=== PATIENT | female | born 1945 | race Caucasian/White ===

== ENCOUNTER → 2018-03-04 | Outpatient (CLI) | payer MEDICARE, OTHER ==
[~2018-03-04] MED LIST: ASA81 MG; CALCIUM PO; COQ-10; FISH OIL 1,2001 EAC5; HYDROCODONE AP; METRONIDAZOLE; VITAMIN D PO; Z OSTEO BI FLEX; Z.0.ALEVE220 MG; Z.0.BACLOFEN20 MG; Z.0.BYSTOLIC10 MG; Z.0.CYCLOBENZAPRINE1 PO; Z.0.DIOVAN320 MG; Z.0.EVISTA60 MG; Z.0.FUROSEMIDE20 MG; Z.0.SYNTHROID75 MCG; Z.0.ULTRAM 50MG50 MG PO; Z.0.VYTORIN 10-801 E
--- NOTE | 2018-03-04 18:46 | Diagnostic Imaging Report ---
PROCEDURE:X-RAY LEFT FINGER COMPARISON:None. INDICATIONS:LEFT FIFTH DIGIT PAIN/SWELLING FINDINGS: BONES:Generalized osteopenia, which limits evaluation of the bony structures. No acute displaced fracture or dislocation. Marked joint space narrowing and osteophytosis of the fourth finger distal interphalangeal joint and to a lesser degree proximal interphalangeal joint. Moderate joint space narrowing is noted in the fifth finger distal interphalangeal joint with mild joint space narrowing in the proximal interphalangeal joint. No lytic or blastic lesions. SOFT TISSUES:Mild soft tissue swelling in the fifth finger. No cystic erosive changes. OTHER:Negative. CONCLUSION: 1. Findings likely represent moderate to marked osteoarthritis. Nato Ahmadi M.D. Dictated by: Nato Ahmadi M.D. on 03/04/2018 at 18:50 Electronically approved by: Nato Ahmadi M.D. on 03/04/2018 at 18:50
== END ==
LOC: RAD 16:58
PROVIDERS: ATTEND Family Medicine
DX: M79.645 Pain in left finger(s) (principal)

== ENCOUNTER → 2018-07-09 | Outpatient (CLI) | payer MEDICARE, OTHER ==
--- NOTE | 2018-07-09 18:46 | Diagnostic Imaging Report ---
EXAM: HEEL RT INDICATION: Heel pain COMPARISON: None FINDINGS: BONES: No acute fractures. Moderate posterior calcaneal spur. Tiny plantar calcaneal spur. Coarse calcifications at the posterior superior calcaneus. JOINTS: No malalignment. SOFT TISSUES: Soft tissue prominence of the posterior ankle. IMPRESSION: Moderate sized posterior calcaneal spur. Tiny plantar calcaneal spur. Coarse calcifications posterior superior calcaneus and soft tissue prominence of the posterior ankle suggests prior Achilles tendon injury. Signed by: Dr. Jayne Smith M.D. on 07/09/2018 6:43 PM
== END ==
LOC: RAD 16:42
PROVIDERS: ATTEND Family Medicine
DX: M79.671 Pain in right foot (principal)

== ENCOUNTER → 2019-02-15 | Outpatient (CLI) | payer MEDICARE, OTHER ==
--- NOTE | 2019-02-15 14:39 | Diagnostic Imaging Report ---
Exam: Abdominal film Clinical History: Renal stones Comparison: 05/18/2017 DISCUSSION: No suspicious calcifications project over the renal shadows or expected ureteral courses. Bowel gas pattern is nonobstructive. Regional skeletal structures are intact with multilevel degenerative disc changes of the thoracolumbar spine. IMPRESSION: No plain film evidence of urolithiasis. Signed by: Dr. Levy Aguilera M.D. on 02/15/2019 2:35 PM
--- NOTE | 2019-02-15 14:42 | Diagnostic Imaging Report ---
EXAMINATION: Renal ultrasound. CLINICAL HISTORY :Urinary tract infection COMPARISON: <None available.> TECHNIQUE: Grayscale and color Doppler evaluation of the kidneys and bladder was performed in transverse and longitudinal planes. DISCUSSION: RIGHT KIDNEY: The right kidney measures 11.6 cm in length and shows normal echogenicity. No hydronephrosis, shadowing calculi or solid mass lesions. LEFT KIDNEY: The left kidney measures 11.5 cm in length and shows normal echogenicity. Suspected 3 mm shadowing calculus in the upper pole. No hydronephrosis or mass lesion. BLADDER: Unremarkable. Right and left ureteral jets are identified. IMPRESSION: Suspected 3 mm nonobstructing left renal calculus. Signed by: Dr. Levy Aguilera M.D. on 02/15/2019 2:38 PM
== END ==
LOC: US 13:38
PROVIDERS: ATTEND Urology
DX: N20.0 Calculus of kidney (principal); N39.0 Urinary tract infection, site not specified
CPT/HCPCS: 74018; 76770

== ENCOUNTER → 2019-03-04 | Outpatient (CLI) | payer MEDICARE, OTHER ==
--- NOTE | 2019-03-04 11:51 | Diagnostic Imaging Report ---
PROCEDURE: CT ABDOMEN AND PELVIS WITHOUT CONTRAST TECHNIQUE: The abdomen and pelvis were scanned utilizing a multidetector helical scanner from the diaphragm to the lesser trochanter. No oral or intravenous contrast was administered per renal stone protocol. Coronal and sagittal multiplanar reformations were obtained. COMPARISON: 05/18/2017 INDICATIONS: RIGHT FLANK PAIN, URINARY TRACT INFECTIONS FINDINGS: ABSENCE OF INTRAVENOUS CONTRAST DECREASES SENSITIVITY FOR DETECTION OF FOCAL LESIONS AND VASCULAR PATHOLOGY. LOWER THORAX: Scattered fibrotic changes in the lung bases, likely age-related. HEPATOBILIARY: A calcified granuloma in segment 7. Otherwise no focal hepatic lesion. No intrahepatic biliary ductal dilatation. Gallbladder is unremarkable. SPLEEN: No splenomegaly. PANCREAS: No focal masses or ductal dilatation. ADRENALS: No adrenal nodules. KIDNEYS/URETERS: Nonspecific perinephric fat stranding is unchanged. Punctate nonobstructing left lower pole renal calculus (series 3 image 76). Bilateral extrarenal pelves without overt hydronephrosis. No ureteral or bladder calculi. No gross renal mass lesion. PELVIC ORGANS/BLADDER: The urinary bladder is incompletely distended but otherwise unremarkable. The uterus is not identified and has presumably been resected. No adnexal mass. Coarse right pelvic calcification may be ovarian or lymphatic in nature. PERITONEUM / RETROPERITONEUM: No free air or fluid. LYMPH NODES: No pelvic sidewall, retroperitoneal, or mesenteric lymphadenopathy. VESSELS: Limited evaluation without intravenous contrast. The abdominal aorta is non-aneurysmal. Atherosclerotic calcifications throughout. GI TRACT: The large bowel shows no evidence of distention or wall thickening. There are a few descending and sigmoid colon diverticula without adjacent inflammatory change. The remainder of the distal colon is collapsed and poorly evaluated. The appendix is not identified and may have been removed. No right lower quadrant inflammation. No small bowel dilatation to suggest obstruction. 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 Post surgical changes of the anterior abdominal wall. No additional focal soft tissue abnormalities. No osseous destructive lesions. Multilevel degenerative disc disease and facet arthropathy of the lower lumbar spine.. IMPRESSION: No acute intra-abdominal or pelvic CT abnormalities. Nonobstructing left lower pole renal calculus. Atherosclerotic vascular disease. Large bowel diverticulosis without evidence of diverticulitis. Dictated by: Levy Aguilera M.D. on 03/04/2019 at 11:54 Electronically approved by: Levy Aguilera M.D. on 03/04/2019 at 11:54
== END ==
LOC: CT 10:47
PROVIDERS: ATTEND Urology
DX: N20.0 Calculus of kidney (principal)
CPT/HCPCS: 74176

== ENCOUNTER → 2019-04-14 | Outpatient (CLI) | payer MEDICARE, OTHER ==
--- NOTE | 2019-04-14 11:03 | Diagnostic Imaging Report ---
Bilateral shoulders, 2 views each. History: Bilateral shoulder pain. Findings: The soft tissues are normal. Bone mineralization is normal. There is no evidence of fracture or dislocation. There are no lytic or sclerotic lesions. AC joints are within normal limits. There is bilateral glenohumeral joint space narrowing with osteophytosis. IMPRESSION: Bilateral shoulder DJD. Signed by: Rodolfo Joaquin on 04/14/2019 11:00 AM
== END ==
LOC: RAD 09:56
PROVIDERS: ATTEND Family Medicine
DX: M25.512 Pain in left shoulder (principal); M25.511 Pain in right shoulder

== ENCOUNTER → 2019-08-25 | Outpatient (CLI) | payer MEDICARE, OTHER ==
--- NOTE | 2019-08-25 11:25 | Diagnostic Imaging Report ---
EXAM: ABDOMEN-1VIEW (KUB) DATE: 08/25/2019 10:53 AM INDICATION: Calculus of kidney COMPARISON: CT from 03/04/2019 FINDINGS: Bowel gas pattern is nonspecific but appears nonobstructive. Bowel gas overlies and partially obscures the renal shadows. No abnormal calcification or radiographically evident renal stone is identified. There are multilevel degenerative changes of the visualized spine. No acute osseous abnormality is identified. IMPRESSION: No radiographically evident renal stone identified. Signed by: Dr. Floyd Link MD on 08/25/2019 11:22 AM
== END ==
LOC: RAD 10:36
PROVIDERS: ATTEND Urology
DX: N20.0 Calculus of kidney (principal)
CPT/HCPCS: 74018

== ENCOUNTER → 2020-07-31 | Outpatient (CLI) | payer MEDICARE, OTHER ==
--- NOTE | 2020-07-31 14:50 | Diagnostic Imaging Report ---
Exam: KUB - 1 views Indication: Urinary tract infection Comparison: KUB of 08/25/2019, CT abdomen and pelvis of 03/04/2019 Findings: No radiographically apparent urinary calculi. Nonobstructive bowel gas pattern. No free air. No acute osseous injury. Degenerative changes of the visualized spine and both hip joints. Impression: No radiographically apparent urinary calculi. Signed by: Vini Sharma MD on 07/31/2020 2:47 PM
--- NOTE | 2020-07-31 15:31 | Diagnostic Imaging Report ---
EXAM: Renal Ultrasound INDICATION: ^[id number] ^[id number] COMPARISON: KUB of the same day, CT abdomen and pelvis of 03/04/2019 TECHNIQUE: Transverse and longitudinal images of the kidneys and bladder were obtained. FINDINGS: Right Kidney: Length: 10.3 cm Appearance: Normal echogenicity. Collecting system: No hydronephrosis Stones: None Cyst/Mass: None Left Kidney: Length: 10.5 cm Appearance: Normal echogenicity. Collecting system: No hydronephrosis Stones: None Cyst/Mass: None Bladder: No mass or calculi. Right ureteral jet visualized. Prevoid bladder volume estimate of 81 cc. IMPRESSION: No hydronephrosis or renal calculi. Signed by: Vini Sharma MD on 07/31/2020 3:28 PM
== END ==
LOC: US 14:00
PROVIDERS: ATTEND Urology
DX: N39.0 Urinary tract infection, site not specified (principal)
CPT/HCPCS: 74018; 76770

== ENCOUNTER 2021-03-28 14:40 | Outpatient (RCR) | payer MEDICARE, OTHER | END 2021-03-30 | LOC: OT 14:40 | PROVIDERS: ATTEND Specialist | DX: M19.011 Primary osteoarthritis, right shoulder (principal); M19.012 Primary osteoarthritis, left shoulder ==

== ENCOUNTER 2021-06-22 17:29 | Emergency (ER) | payer MEDICARE, OTHER ==
[~2021-06-22] VITALS: Ht 154.9 cm; Wt 86.2 kg
[2021-06-22] MEDS ORDERED: IBUPROFEN 600 MG TAB PO STA (17:48)
== END 2021-06-22 19:09 | disposition home or self-care (01) ==
LOC: ER 17:39
DX: S63.501A Unspecified sprain of right wrist, initial encounter (principal); S43.401A Unspecified sprain of right shoulder joint, initial encounter; W01.0XXA Fall on same level from slipping, tripping and stumbling without subsequent striking against object, initial encounter; Y93.01 Activity, walking, marching and hiking; I10 Essential (primary) hypertension; E11.9 Type 2 diabetes mellitus without complications; E78.5 Hyperlipidemia, unspecified; E78.00 Pure hypercholesterolemia, unspecified
CPT/HCPCS: 99283

== ENCOUNTER 2025-05-12 10:36 | Emergency (ER) | payer MEDICARE, OTHER ==
[~2025-05-12] VITALS: Ht 152.4 cm; Wt 86.2 kg
[2025-05-12 11:05] VITALS: TEMP 97.9
[2025-05-12] MEDS: ACETAMINOPHEN 325 MG TAB PO ONE (12:19)
[2025-05-12] MEDS: TRAMADOL HCL 50 MG TAB PO ONE (12:20)
[2025-05-12] MEDS ORDERED: ULTRAM 50MG50 MG PO (12:29)
[2025-05-12 13:06] VITALS: PULSE 60; RESP 18
[2025-05-12 13:41] VITALS: BP 130/68; PULSE 58; RESP 18; TEMP 97.8; O2SAT 99
== END 2025-05-12 13:25 | disposition home or self-care (01) ==
LOC: ER 11:08
DX: M25.571 Pain in right ankle and joints of right foot (principal); S82.431A Displaced oblique fracture of shaft of right fibula, initial encounter for closed fracture; X58.XXXA Exposure to other specified factors, initial encounter; Y92.89 Other specified places as the place of occurrence of the external cause; I10 Essential (primary) hypertension; E11.9 Type 2 diabetes mellitus without complications; E78.5 Hyperlipidemia, unspecified; M19.09 Primary osteoarthritis, other specified site; Z96.653 Presence of artificial knee joint, bilateral
CPT/HCPCS: 99283

== ENCOUNTER → 2025-05-25 | Outpatient (REF) | payer MEDICARE, OTHER ==
[~2025-05-25] MED LIST changes: +ULTRAM 50MG50 MG PO
== END ==
LOC: DX 10:30
PROVIDERS: ATTEND Family Medicine
DX: M85.88 Other specified disorders of bone density and structure, other site (principal); S82.891S Other fracture of right lower leg, sequela
CPT/HCPCS: 77080